=== PATIENT | female | born 1990 | race African-American/Black ===

== ENCOUNTER 2017-06-27 06:41 | Emergency (ER) | payer OTHER ==
[~2017-06-27] VITALS: Ht 165.1 cm; Wt 68.2 kg
[2017-06-27] MEDS ORDERED: MAALOX 30 ML SUSP *UDC PO ONE (08:00)
[2017-06-27] MEDS ORDERED: LIDOCAINE VISCOUS 2% SOLN 15ML UDC PO ONE (08:00)
--- NOTE | 2017-06-27 08:08 | REP ---
Soft tissue neck two views AP and lateral projections: The prevertebral soft tissues are normal. The epiglottis and aryepiglottic folds are unremarkable. There is no radiopaque foreign body. Vertebral body heights and alignment are normal. Impression: No radiopaque foreign body. Signed by Barry Aguilar MD 06/27/2017 08:00 A
[2017-06-27 08:34] VITALS: BP 117/75
== END 2017-06-27 08:56 | disposition home or self-care (01) ==
LOC: M ED 06:41
DX: O99.89 Other specified diseases and conditions complicating pregnancy, childbirth and the puerperium (principal); R07.0 Pain in throat; Z3A.08 8 weeks gestation of pregnancy

== ENCOUNTER 2018-10-08 08:19 | Emergency (ER) | payer OTHER ==
[~2018-10-08] VITALS: Ht 165.1 cm; Wt 71.8 kg
[2018-10-08] MEDS ORDERED: SERT25TA88 (08:24)
[2018-10-08] MEDS ORDERED: ACETAMINOPHEN 325 MG TAB PO ONE (08:45)
[2018-10-08 10:00] LABS: INFLUENZA A AMPLIFICATION NEGATIVE (NEGATIVE); INFLUENZA B AMPLIFICATION NEGATIVE (NEGATIVE)
[2018-10-08 10:36] VITALS: BP 103/66
== END 2018-10-08 10:37 | disposition home or self-care (01) ==
LOC: M ED 08:19
DX: R50.9 Fever, unspecified (principal); B34.9 Viral infection, unspecified; F32.9 Major depressive disorder, single episode, unspecified; Z79.899 Other long term (current) drug therapy